=== PATIENT | male | born 1950 | race Caucasian/White ===

== ENCOUNTER 2019-06-18 11:00 | Emergency (ER) | payer OTHER ==
[2019-06-18] MEDS ORDERED: FAMOTIDINE 20 MG TABLET PO ONE (12:06)
[2019-06-18] MEDS ORDERED: DIPHENHYDRAMINE HCL 50 MG CAPSULE PO ONE (12:06)
[2019-06-18] MEDS ORDERED: PREDNISOLONE SOD PHOS 15 MG/5 ML ORAL SYRING PO ONE (12:06)
--- NOTE | 2019-06-18 12:06 | ER Document Report ---
ED General - General Chief Complaint: Allergic Reaction Stated Complaint: ALLERGIC REACTION Time Seen by Provider: 06/18/19 12:00 TRAVEL OUTSIDE OF THE [place] IN LAST 30 DAYS: No - HPI Patient complains to provider of: upper lip swelling Notes: Well-appearing 6-year-old male presents with isolated upper lip swelling starting this morning. Patient sent over from evaluation. Patient does take lisinopril. Has been taking it for several months. Patient denies any respiratory stress difficult other symptoms. Past Medical History - Social History Smoking Status: Unknown if Ever Smoked Chew tobacco use (# tins/day): No Frequency of alcohol use: None Drug Abuse: None Family History: None Patient has suicidal ideation: No Patient has homicidal ideation: No Physical Exam - Vital signs Vitals: Temp Pulse Resp BP Pulse Ox 97.9 F 57 L 20 151/77 H 95 06/18/19 11:13 06/18/19 11:13 06/18/19 11:13 06/18/19 11:13 06/18/19 11:13 - Notes Notes: My physical exam PHYSICAL EXAMINATION: GENERAL: Well-appearing, well-nourished and in no acute distress. HEAD: Atraumatic, normocephalic. EYES: Pupils equal round and reactive to light, extraocular movements intact, sclera anicteric, conjunctiva are normal. ENT: Upper lip swelling, no swelling in the mouth or posterior oropharynx NECK: Normal range of motion, supple without lymphadenopathy LUNGS: Breath sounds clear to auscultation bilaterally and equal. No wheezes rales or rhonchi. HEART: Regular rate and rhythm without murmurs NEUROLOGICAL: Cranial nerves grossly intact. Normal speech, normal gait. Normal sensory and motor exams. PSYCH: Normal mood, normal affect. SKIN: Warm, Dry, normal turgor, no rashes or lesions noted. Course - Re-evaluation Re-evalutation: 06/18/19 12:08 Patient presents with apparent isolated angioedema, given steroids, diphenhydramine and famotidine in the emergency department. Patient has no airway involvement. 06/18/19 13:10 Patient observed in the department symptoms of markedly improved. Lip is much smaller. Patient says he feels fine. He is hungry and wants to be discharged to go get lunch. Will be discharged home improved follow-up PCP given strict return precautions if the swelling continues or worsens or he feels anything in his tongue mouth return to the emergency department. - Vital Signs Vital signs: Temp Pulse Resp BP Pulse Ox 97.9 F 57 L 20 151/77 H 95 06/18/19 11:13 06/18/19 11:13 06/18/19 11:13 06/18/19 11:13 06/18/19 11:13 Discharge - Discharge Clinical Impression: Angioedema Qualifiers: Encounter type: initial encounter Qualified Code(s): T78.3XXA - Angioneurotic edema, initial encounter Condition: Stable Disposition: HOME, SELF-CARE Instructions: Angioedema ([facility]) Additional Instructions: See your PCP
[2019-06-18 13:13] VITALS: BP 127/71
== END 2019-06-18 13:13 | disposition home or self-care (01) ==
LOC: ER 11:00
DX: T78.3XXA Angioneurotic edema, initial encounter (principal); X58.XXXA Exposure to other specified factors, initial encounter
CPT/HCPCS: 99283; J7510